=== PATIENT | female | born 1970 | race Two or more races ===

== ENCOUNTER 2024-11-02 21:59 | Emergency (ER) | payer OTHER ==
[~2024-11-02] VITALS: Ht 152.4 cm; Wt 58.1 kg
[~2024-11-02 21:59] MED LIST: IBU400 MG PO; ZITHROMAX500 MG PO
[2024-11-03] MEDS ORDERED: 0.9 % SODIUM CHLORIDE 1,000 ML IV STA (03:31)
[2024-11-03] MEDS ORDERED: KETOROLAC TROMETHAMINE 30 MG VIAL IV STA (03:32)
[2024-11-03] MEDS ORDERED: MORPHINE SULFATE 4 MG/ML VIAL IV STA (03:32)
[2024-11-03] MEDS ORDERED: KETOROLAC TROMETHAMINE 30 MG VIAL ONE (03:34)
[2024-11-03] MEDS ORDERED: HYOSCYAMINE SULFATE 0.125 MG TAB.SUBL ONE (03:34)
[2024-11-03] MEDS ORDERED: HYOSCYAMINE SULFATE 0.125 MG TAB.SUBL SL ONE (03:45)
[2024-11-03 03:50] LABS: BASO % 0.5 % (0.1-1.2); EOS # 0.07 (0.04-0.54); EOS % 0.7 % (0.7-7.0); LYMPH # 2.08 (1.18-3.74); LYMPH % 21.3 % (19.3-53.1); MEAN PLATELET VOLUME 10.20 fl (9.4-12.4); MONO # 0.84 (0.24-0.82); MONO % 8.6 % (4.7-12.5); NEUT # 6.70 (1.56-6.13); NEUT % 68.7 % (34.0-71.1); RED CELL DISTRIBUTION WIDTH 12.8 % (11.6-14.4)
[2024-11-03 04:16] LABS: INR 1.04
[2024-11-03 05:00] LABS: ALT/SGPT 26.0 U/L (12-78); AST/SGOT 15.0 U/L (15-37); BILIRUBIN TOTAL 0.94 mg/dL (0.3-1.2); BUN CREA RATIO 22.0 (7.0-25.0); CREATININE SERUM 0.68 mg/dL (0.55-1.02); GFR 89.83; GLOBULINA 3.5 G/DL (2.4-3.5); GLUCOSE FASTING 106.0 mg/dL (65-100); OSMOLALITY SERUM 282.0 MOSM/KG (275-295)
== END 2024-11-03 05:56 | disposition home or self-care (01) ==
LOC: ER 21:59
DX: R10.9 Unspecified abdominal pain (principal)
CPT/HCPCS: 36415; 74176; 96365; 96366; 99284; J1885; J2270; J7030